=== PATIENT | female | born 1985 | race Hispanic/Latino ===

== ENCOUNTER 2019-01-21 17:12 | Emergency (ER) | payer BC, SELFPAY ==
[2019-01-21] MEDS ORDERED: ONDANSETRON 4 MG (ODT) TAB ONE (17:57)
[2019-01-21] MEDS ORDERED: IBUPROFEN 200 MG TAB PO ONE (17:57)
--- NOTE | 2019-01-21 18:26 | EDPHYS ---
Physician Documentation [facility] Name: León Mir Age: 33 yrs Sex: Female : 1985 Arrival Date: 01/21/2019 Time: 17:20 Bed 9 Private MD: Elidia Chan H ED Physician Viktor Joel HPI: 01/21 17:43 This 33 yrs old Female presents to ER via Ambulatory with complaints of Flu deanna Symptoms. 17:43 fever, flu like. The patient or guardian reports cough, described as mild, flu deanna symptoms, arthralgias, low-grade fever, myalgias, no appetite. Onset: The symptoms/episode began/occurred 2 day(s) ago. Severity of symptoms: At their worst the symptoms were mild, moderate, in the emergency department the symptoms are unchanged. Modifying factors: The symptoms are alleviated by nothing, the symptoms are aggravated by exertion. The patient reports fever, that was measured at 100 degrees Fahrenheit. Modifying factors: there are no obvious modifying factors. Historical: - Allergies: 17:34 No Known Allergies; ph - Home Meds: 17:34 Lisinopril Oral [Active]; ph - PMHx: 17:34 Kidney stones; Hypertension; ph - PSHx: 17:34 None; ph - Immunization history:: Adult Immunizations unknown. - Social history:: Smoking status: Patient/guardian denies using tobacco. - Family history:: not pertinent. ROS: 17:43 Constitutional: Negative for fever, chills, and weight loss, Eyes: Negative for injury, deanna pain, redness, and discharge, Neck: Negative for injury, pain, and swelling. 17:43 ENT: Positive for rhinorrhea, sinus congestion. 17:43 Respiratory: Positive for cough. 17:43 Neuro: Positive for weakness. Exam: 17:43 Head/Face: Normocephalic, atraumatic. Eyes: Pupils equal round and reactive to light, deanna extra-ocular motions intact. Lids and lashes normal. Conjunctiva and sclera are non-icteric and not injected. Cornea within normal limits. Periorbital areas with no swelling, redness, or edema. Neck: Trachea midline, no thyromegaly or masses palpated, and no cervical lymphadenopathy. Supple, full range of motion without nuchal rigidity, or vertebral point tenderness. No Meningismus. Chest/axilla: Normal chest wall appearance and motion. Nontender with no deformity. No lesions are appreciated. Respiratory: Lungs have equal breath sounds bilaterally, clear to auscultation and percussion. No rales, rhonchi or wheezes noted. No increased work of breathing, no retractions or nasal flaring. Abdomen/GI: Soft, non-tender, with normal bowel sounds. No distension or tympany. No guarding or rebound. No evidence of tenderness throughout. Female : Normal external genitalia. Skin: Warm, dry with normal turgor. Normal color with no rashes, no lesions, and no evidence of cellulitis. MS/ Extremity: Pulses equal, no cyanosis. Neurovascular intact. Full, normal range of motion. Neuro: Awake and alert, GCS 15, oriented to person, place, time, and situation. Cranial nerves II-XII grossly intact. Motor strength 5/5 in all extremities. Sensory grossly intact. Cerebellar exam normal. Normal gait. Psych: Awake, alert, with orientation to person, place and time. Behavior, mood, and affect are within normal limits. 17:43 Constitutional: The patient appears febrile. 17:43 Cardiovascular: Rate: tachycardic, Rhythm: regular, Pulses: Pulses are 4+ in bilateral radial, brachial, femoral, popliteal, posterior tibial and and dorsalis pedis arteries.. Heart sounds: normal, Edema: is not appreciated, JVD: is not appreciated. Vital Signs: 17:34 BP 135 / 100; Pulse 128; Resp 18; Temp 100.0; Pulse Ox 98% on R/A; ph 18:46 Pulse 108; Resp 15; Temp 99.2(TE); ss MDM: 17:36 Patient medically screened. [facility] 17:43 Data reviewed: vital signs, nurses notes, lab test result(s). [facility] 01/21 17:33 Order name: Flu ph 01/21 17:33 Order name: Strep ph 01/21 17:33 Order name: Influenza Screen (A ; Complete Time: 18:24 EDAZ 01/21 17:33 Order name: Group A Streptococcus Rapid Sc; Complete Time: 18:24 EDAZ 01/21 18:11 Order name: Throat Culture [facility] 01/21 18:33 Order name: Urine Dipstick--Ancillary (enter results) [place] 01/21 17:43 Order name: Urine Dipstick-Ancillary (obtain specimen); Complete Time: 18:46 [facility] 01/21 17:43 Order name: Urine Test (obtain specimen); Complete Time: 18:46 [facility] 01/21 18:24 Order name: PO challenge; Complete Time: 18:36 [facility] 01/21 18:33 Order name: Urine --Ancillary (enter results) ms Administered Medications: 17:49 Drug: Motrin 600 mg Route: PO; ss 18:46 Follow up: Response: No adverse reaction; Temperature is decreased ss 17:49 Drug: Zofran 4 mg Route: PO; ss 18:46 Follow up: Response: No adverse reaction; Nausea is decreased ss 18:46 Drug: Zithromax 500 mg Route: PO; ss 18:50 Follow up: Response: Medication administered at discharge. ss 18:46 Drug: Tamiflu 75 mg Route: PO; ss 18:50 Follow up: Response: Medication administered at discharge. ss Disposition: 01/21/19 18:25 Discharged to Home. Impression: Fever, unspecified, Nausea and vomiting, Influenza due to certain identified influenza viruses. - Condition is Stable. - Discharge Instructions: Fever, Adult, Influenza, Adult, Nausea, Adult, Influenza, Pediatric, [id number], Nausea, Adult, [id number]. - Prescriptions for Zofran 4 mg Oral Tablet - take 1 tablet by ORAL route every 12 hours As needed; 14 tablet. Tamiflu 75 mg Oral Capsule - take 1 tablet by ORAL route every 12 hours for 5 days; 10 tablet. Zithromax 500 mg Oral Tablet - take 1 tablet by ORAL route once daily for 5 days; 5 tablet. - Medication Reconciliation Form, Thank You Letter, Antibiotic Education, Prescription Opioid Use form. - Follow up: Elidia Chan; When: 2 - 3 days; Reason: Recheck today's complaints, Continuance of care, Re-evaluation by your physician. - Problem is new. - Symptoms have improved. Signatures: Dispatcher [employer] Viktor Cummings MD MD cha Smirch, Shelby, RN RN ss Vonnie Benjamin RN RN ph Corrections: (The following items were deleted from the chart) 18:50 18:25 01/21/2019 18:25 Discharged to Home. Impression: Fever, unspecified; Nausea and ss vomiting; Influenza due to certain identified influenza viruses. Condition is Stable. Discharge Instructions: Influenza, Adult, Nausea, Adult, Influenza, Pediatric, [id number], Nausea, Adult, [id number], Fever, Adult. Prescriptions for Zofran 4 mg Oral Tablet - take 1 tablet by ORAL route every 12 hours As needed; 14 tablet, Tamiflu 75 mg Oral Capsule - take 1 tablet by ORAL route every 12 hours for 5 days; 10 tablet. and Forms are Medication Reconciliation Form, Thank You Letter, Antibiotic Education, Prescription Opioid Use. Follow up: Elidia Chan; When: 2 - 3 days; Reason: Recheck today's complaints, Continuance of care, Re-evaluation by your physician. Problem is new. Symptoms have improved. deanna
--- NOTE | 2019-01-21 18:26 | ER ---
Nurse's Notes [facility] Name: León Mir Age: 33 yrs Sex: Female : 1985 Arrival Date: 01/21/2019 Time: 17:20 Bed 9 Private MD: Elidia Chan H Diagnosis: Fever, unspecified;Nausea and vomiting;Influenza due to certain identified influenza viruses Presentation: 01/21 17:33 Presenting complaint: Patient states: Body aches, fever, headache, N/V and sore throat ph since yesterday. Transition of care: patient was not received from another setting of care. Onset of symptoms was January 21, 2019. Risk Assessment: Do you want to hurt yourself or someone else? Patient reports no desire to harm self or others. Initial Sepsis Screen: Does the patient meet any 2 criteria? No. Patient's initial sepsis screen is negative. Does the patient have a suspected source of infection? No. Patient's initial sepsis screen is negative. 17:33 Method Of Arrival: Ambulatory ph 17:33 Acuity: LAKESHIA 3 ph Historical: - Allergies: 17:34 No Known Allergies; ph - Home Meds: 17:34 Lisinopril Oral [Active]; ph - PMHx: 17:34 Kidney stones; Hypertension; ph - PSHx: 17:34 None; ph - Immunization history:: Adult Immunizations unknown. - Social history:: Smoking status: Patient/guardian denies using tobacco. - Family history:: not pertinent. Screenin:35 Abuse screen: Denies threats or abuse. Denies injuries from another. Nutritional ss screening: No deficits noted. Tuberculosis screening: No symptoms or risk factors identified. Never had TB. Fall Risk None identified. Assessment: 17:35 General: Appears uncomfortable, ill, Behavior is calm, cooperative, Reports chills for ss 12-24 hours, fever for 12-24 hours, feeling ill for 12-24 hours, fatigue for 12-24 hours. Pain: Complains of pain in general body aches, headache Pain currently is 7 out of 10 on a pain scale. Is continuous. Neuro: Level of Consciousness is awake, alert, obeys commands, Oriented to person, place, time, situation. Respiratory: Respiratory effort is even, unlabored, Respiratory pattern is regular, symmetrical. GI: Abdomen is non-distended. : No signs and/or symptoms were reported regarding the genitourinary system. EENT: Oral mucosa is moist. Derm: Skin is intact, is healthy with good turgor, Skin is pink, warm \T\ dry. normal. Musculoskeletal: Circulation, motion, and sensation intact. Range of motion: intact in all extremities, Swelling absent. Vital Signs: 17:34 BP 135 / 100; Pulse 128; Resp 18; Temp 100.0; Pulse Ox 98% on R/A; ph 18:46 Pulse 108; Resp 15; Temp 99.2(TE); ss ED Course: 17:20 Patient arrived in ED. mr 17:20 Elidia Chan DO is Private Physician. mr 17:34 Triage completed. ph 17:35 Arm band placed on. ph 17:35 Patient has correct armband on for positive identification. Bed in low position. Call ss light in reach. 17:36 Viktor Joel MD is Attending Physician. deanna 17:38 Flu Sent. ss 17:38 Strep Sent. ss 18:06 Jhoana Kirkpatrick, IDRIS is Primary Nurse. ss 18:24 Elidia Chan DO is Referral Physician. deanna 18:46 Throat Culture Sent. ss 18:49 No provider procedures requiring assistance completed. Patient did not have IV access ss during this emergency room visit. Administered Medications: 17:49 Drug: Motrin 600 mg Route: PO; ss 18:46 Follow up: Response: No adverse reaction; Temperature is decreased ss 17:49 Drug: Zofran 4 mg Route: PO; ss 18:46 Follow up: Response: No adverse reaction; Nausea is decreased ss 18:46 Drug: Zithromax 500 mg Route: PO; ss 18:50 Follow up: Response: Medication administered at discharge. ss 18:46 Drug: Tamiflu 75 mg Route: PO; ss 18:50 Follow up: Response: Medication administered at discharge. Outcome: 18:25 Discharge ordered by . deanna 18:49 Discharged to home ambulatory, with family. ss 18:49 Condition: good 18:49 Discharge instructions given to patient, family, Instructed on discharge instructions, follow up and referral plans. medication usage, Demonstrated understanding of instructions, follow-up care, medications, Prescriptions given X 3. 18:50 Patient left the ED. ss Signatures: Viktor Joel MD MD cha Rivera, Yelena mr Jhoana Kirkpatrick RN RN ss Vonnie Benjamin RN RN ph Corrections: (The following items were deleted from the chart) 17:35 17:33 Acuity: LAKESHIA 4 ph ph
[2019-01-21] MEDS ORDERED: OSELTAMIVIR 75 MG CAP ONE (18:52)
[2019-01-21] MEDS ORDERED: AZITHROMYCIN 250 MG TAB ONE (18:53)
[2019-01-21 18:59] VITALS: BP 135/100; O2SAT 98
[2019-01-21 20:09] LABS: Urine Blood TRACE (NEG); Urine Glucose NEGATIVE (NEG); Urine Protein 2+ (NEG); Urine pH 6.5 (5.0-7.0)
[2019-01-23 05:06] VITALS: TEMP 99.2
== END 2019-01-21 18:50 | disposition home or self-care (01) ==
LOC: ER 17:12
DX: J10.1 Influenza due to other identified influenza virus with other respiratory manifestations (principal); R11.2 Nausea with vomiting, unspecified; I10 Essential (primary) hypertension
CPT/HCPCS: 81003; 81025; 87070; 87081; 87804; 99283